=== PATIENT | female | born 1985 | race Caucasian/White ===

== ENCOUNTER 2017-08-12 10:24 | Inpatient (IN) | payer OTHER ==
[~2017-08-12] VITALS: Ht 165.1 cm; Wt 113.7 kg
[2017-08-12 10:50] VITALS: Ht 165.1 cm; Wt 113.7 kg
[2017-08-12 10:51] VITALS: BP 123/67; PULSE 77; RESP 18
[2017-08-12] MEDS ORDERED: PNV11TAB PO (10:53)
[2017-08-12] MEDS ORDERED: CALC600T5 PO (10:53)
--- NOTE | 2017-08-12 11:36 | RADRPT ---
PROCEDURE: US biophysical profile. CLINICAL INDICATION: Leaking amniotic fluid for 3 days. TECHNIQUE: Multiple sonographic images of the uterus were obtained. The images were revi ewed on a PACS workstation. COMPARISON: No prior studies are available for comparison. FINDINGS: There is a single live intrauterine gestation. heart rate is 143 beats per minute. The position is cephalic. The placenta is posterior grade III with no abruption or previa. The BECCA is 9.0 cm. (Normal = 5-20 cm.) Breathing Movement: 2 Gross Body Movement: 2 Tone: 2 Qualitative Amniotic Fluid Volume: 2 TOTAL: 8 IMPRESSION: 1. The biophysical score is 8/8. RPTAT: QQ .Sabas Gonzales MD, MD Date Time Electronically viewed and signed by .Sabas Gonzales MD, on 08/12/2017 11:36 .R/
--- NOTE | 2017-08-12 12:05 | RADRPT ---
PROCEDURE: US OB. CLINICAL INDICATION: Leaking fluid TECHNIQUE: Multiple sonographic images of the pelvis were obtained. Transabdominal imaging only w as performed. The images were reviewed on a PACS workstation. COMPARISON: No prior studies are available for comparison. FINDINGS: There is a single live intrauterine gestation. Cardiac activity is present with 150 beats per minut e. position is cephalic. The cervix is closed with a length of 3.8 cm. Measurements were made in order to determine age. The results are as follows: BPD = 8.85 cm HC = 32.81 cm AC = 35.60 cm FL = 7.57 cm. Estimated gestational age of approximately 37 weeks 6 days. The estimated date of delivery is 08/27/2017. The EFW = 3533 g, 76.5 %ile. The placenta is fundal. There is no evidence for an abruption or placenta previa. IMPRESSION: 1. Single live intrauterine gestation of approximately 37 weeks 6 days, by ultrasound criteria. 2. The estimated date of delivery is 08/27/2017. 3. The estimated weight is 3533 g, 76.5 %ile. RPTAT: HH .Alize Fitzgerald MD, MD Date Time Electronically viewed and signed by .Alize Fitzgerald MD, on 08/12/2017 12:05 .G/
[2017-08-12 14:05] LABS: BASOPHILS % 0.2 % (0.0-2.0); EOSINOPHILS % 0.1 % (0.0-7.0); HEMATOCRIT 36.4 % (37.0-47.0); HEMOGLOBIN 12.4 g/dl (12.0-16.0); LYMPHOCYTES # 1.6 10^3/ul (0.8-2.9); LYMPHOCYTES % 18.5 % (15.0-51.0); MEAN CORPUSCULAR HEMOGLOBIN 28.2 pg (29.0-33.0); MEAN CORPUSCULAR HGB CONC 34.1 g/dl (32.0-37.0); MEAN CORPUSCULAR VOLUME 82.9 fl (82.0-101.0); MEAN PLATELET VOLUME 11.6 fl (7.4-10.4); MONOCYTE # 0.7 10^3/ul (0.3-0.9); MONOCYTES % 7.7 % (0.0-11.0); NEUTROPHIL # 6.5 10^3/ul (1.6-7.5); NEUTROPHILS % 73.2 % (39.0-77.0); PLATELET COUNT 157 10^3/UL (140-415); RED BLOOD COUNT 4.39 10^6/ul (4.20-5.40); RED CELL DISTRIBUTION WIDTH 12.4 % (11.5-14.5); WHITE BLOOD COUNT 8.9 10^3/ul (4.8-10.8)
[2017-08-12] MEDS ORDERED: LACTATED RINGER'S 1,000 ML IV SCH (14:41)
--- NOTE | 2017-08-12 14:47 | TRIAGE ---
OB Triage Datetime Report Generated by CPN: 08/12/2017 14:47 Datetime: 08/12/2017 14:37 Stage of : OB Triage Datetime: 08/12/2017 14:23 Stage of : OB Triage Datetime: 08/12/2017 14:03 Labor Evaluation Frequency: 3-7 Monitor Mode: External Duration (sec)2399: 50-70 Quality: Mild Pattern: Normal: <= 5 Contractions in 10 Minutes Resting Tone Xenia: Relaxed Heart Rate FHR Baseline Rate: 135 Monitor Mode: External US Variability: Moderate 6-25 bpm Accelerations: 10X10 Decelerations: None Category: Category I Pain Assessment Pain Scale: 8 Pain Presence: Intermittent Pain Type: Cramping Pain Location: Abdomen Pain Goal: 3 Pain Relief Measures: Comfort Measures Datetime: 08/12/2017 12:59 Labor Evaluation Frequency: 5-10 Monitor Mode: External Duration (sec)2399: 30-70 Quality: Mild Resting Tone Xenia: Relaxed Heart Rate FHR Baseline Rate: 135 Monitor Mode: External US Variability: Moderate 6-25 bpm Accelerations: 10X10 Decelerations: Variable Category: Category II Pain Assessment Pain Scale: 8 Pain Presence: Intermittent Pain Type: Cramping Pain Goal: 3 Pain Relief Measures: Comfort Measures Pain Assessment Comments: pain scale with cramping Datetime: 08/12/2017 12:05 Labor Evaluation Frequency: 0 Monitor Mode: External Resting Tone Xenia: Relaxed Heart Rate FHR Baseline Rate: 145 Monitor Mode: External US Variability: Moderate 6-25 bpm Accelerations: 10X10 Decelerations: None Category: Category I Pain Assessment Pain Scale: 0 Pain Presence: None/Denies Pain Type: N/A Pain Goal: 3 Pain Relief Measures: Comfort Measures Datetime: 08/12/2017 11:26 Stage of : OB Triage Datetime: 08/12/2017 11:04 Stage of : OB Triage Datetime: 08/12/2017 10:54 Stage of : OB Triage Datetime: 08/12/2017 10:40 Stage of : OB Triage Assessment Type: Triage EGA: 38.0 Maternal Assessment Level of Consciousness: Fully Conscious DTR's/Clonus: DTRs 2+; No Clonus Headache: Denies Blurred Vision: No Respiratory Effort: Unlabored; Regular Rhythm; Equal Expansion Breath Sounds, Left: Clear and Equal Breath Sounds, Right: Clear and Equal Nausea/Vomiting: Denies RUQ Epigastric Pain: Denies Facial Edema: None Temperature Route: Axillary Fall Risk Assessment History of Falling: (0) No Secondary Diagnosis: (0) No Ambulatory Aid: (0) Bedrest/Nurse Assist IV Therapy: (0) No Gait: (0) Normal/Bedrest/Immobile Mental Status: (0) Oriented to Own Ability Fall Score: 0 Fall Risk Score Definition: No Risk: No action required Labor Evaluation Frequency: 0 Monitor Mode: External Resting Tone Xenia: Relaxed Heart Rate FHR Baseline Rate: 150 Monitor Mode: External US Variability: Moderate 6-25 bpm Accelerations: 10X10 Decelerations: None Category: Category I Pain Assessment Pain Scale: 8 Pain Presence: Intermittent Pain Type: Cramping; Contraction Pain Location: Abdomen Pain Goal: 3 Pain Relief Measures: Comfort Measures Vaginal Exam Dilatation (cms): 0.0 Effacement (%): 40 Station: -3 Exam By: Cady TREVINO Nitrazine: Negative ROM Test Kit: OBTAINED Datetime: 08/12/2017 10:39 Time of Arrival: 08/12/2017 10:25 Arrived By: Ambulatory Arrived From: Dr. Urias Chief Complaint: SENT FROM DR. URIAS TO R/O SROM, DENIES BLEEDING, UC'S APPROX 3 MIN, INTERMITT ENT OVER LAST FEW DAYS Movement: Present Contractions: Irregular Rupture of Membranes: Unsure Vaginal Bleeding: None Vaginal Discharge: Denies Recent Sexual Intercouse: Denies Abdominal Trauma: Not Applicable Patient Complaints: Contractions; Cramping Time Provider Notified: 08/12/2017 11:26 Provider Notified: dane Initial Plan: MONITOR, VE, NITRAZINE, ROM PLUS
[2017-08-12] MEDS ORDERED: MISOPROSTOL 200 MCG TAB PR PRN (15:00)
[2017-08-12] MEDS ORDERED: LIDOCAINE 1% (MPF) 30 ML INJ INJ PRN (15:00)
[2017-08-12] MEDS ORDERED: CARBOPROST 250 MCG INJ IM PRN (15:00)
[2017-08-12] MEDS ORDERED: METHYLERGONOVINE 0.2 MG INJ IM PRN (15:00)
[2017-08-12] MEDS ORDERED: BUTORPHANOL 2 MG INJ IV PRN ×2 (15:00)
[2017-08-12] MEDS ORDERED: OXYTOCIN 30 UNITS/LR 500 ML IV PRN (15:00)
[2017-08-12 16:17] LABS: BASOPHILS % 0.2 % (0.0-2.0); EOSINOPHILS % 0.1 % (0.0-7.0); HEMATOCRIT 37.9 % (37.0-47.0); HEMOGLOBIN 12.9 g/dl (12.0-16.0); LYMPHOCYTES # 1.7 10^3/ul (0.8-2.9); LYMPHOCYTES % 17.9 % (15.0-51.0); MEAN CORPUSCULAR HEMOGLOBIN 28.1 pg (29.0-33.0); MEAN CORPUSCULAR VOLUME 82.6 fl (82.0-101.0); MEAN PLATELET VOLUME 11.9 fl (7.4-10.4); MONOCYTE # 0.7 10^3/ul (0.3-0.9); MONOCYTES % 7.2 % (0.0-11.0); NEUTROPHIL # 6.9 10^3/ul (1.6-7.5); NEUTROPHILS % 74.4 % (39.0-77.0); PLATELET COUNT 168 10^3/UL (140-415); RED BLOOD COUNT 4.59 10^6/ul (4.20-5.40); RED CELL DISTRIBUTION WIDTH 12.5 % (11.5-14.5); WHITE BLOOD COUNT 9.2 10^3/ul (4.8-10.8)
[2017-08-12] MEDS: OXYTOCIN 30 UNITS/LR 500 ML IV SCH ×2 (16:25→23:33)
[2017-08-12 16:32] LABS: INR 0.92; PROTIME 12.4 Sec (11.9-14.9)
[2017-08-12 16:33] LABS: PARTIAL THROMBOPLASTIN TIME 28.1 Sec (25.0-35.0)
[2017-08-12] MEDS ORDERED: CEFAZOLIN 2 GM/50 ML (PMX) 50 ML IV SCH (19:30)
--- NOTE | 2017-08-12 19:42 | HP ---
Date/Time of Note Date/Time of Note DATE: 08/12/17 TIME: 19:33 OB - History Hx of Present Free Text/Dictation August 12, 2017. Preoperative history and physical. This patient is a 31 years old , 1 para 1 2, with estimated date of confinement of August 26, 2017, which make her 8 weeks, She was admitted in early labor ,made the progress to 1 cm however the heart tracing was not reassuring . Due to nonreassuring heart tracing a decision was made to go ahead with the section. The condition of the heart rate were discussed with the patient she gladly accepted to undergo this procedure. Estimated Due Date: Aug 06, 2017 : 4 Para: 1 Spontaneous : 2 Care: Good Care Abnormal Ultrasound Findings: .She had a spontaneous vaginal delivery on 2008 also had appendectomy on 2005 Obstetrical Complications: Other Other Concerns: Nonreassuring heart rate tracing during labor Past Family/Social History * Past Medical, Surgical, Family and Obstetric Histories reviewed from chart. OB Admission Exam Vital Signs Vital Signs Vital Signs Date Time Temp Pulse Resp B/P Pulse Ox O2 Delivery O2 Flow Rate FiO2 08/12/17 10:51 97.6 77 18 123/67 Physical Exam Heart: Rhythm Normal Lungs: Clear Abdomen: WNL Extremities: Normal Reflexes: Normal Cervical Dilatation: Fingertip Effacement: 50% Station: 0 Membranes: Intact Heart Rate: 140's Accelerations: No Accelerations Decelerations: Variable Decelerations Varibility: Minimum Contractions on Admission: 6-10 Minutes Apart Date/Time Contractions Began: 8 HOURS AGO Frequency of Contractions: 3 TO 4 MINUTES Intensity: Moderate Last 72 hours Lab Results CBC & BMP 08/12/17 13:54 08/12/17 16:03 OB Assessment/Plan Reason for admission: active labor Other Assessment: Per Dr Lieberman heart tracing is none reassuring and patient is also requesting a C Section Plan: Section Other plan: primary C Section ZUHAIR TAN MD Aug 12, 2017 19:42
[2017-08-12] MEDS ORDERED: morphine SULFATE/PF (10 MG/10 ML) INJ ONE (19:56)
[2017-08-12] MEDS ORDERED: PHENYLephrine (100 MCG/ML) 5ML SYG ONE (20:21)
[2017-08-12] MEDS ORDERED: ONDANSETRON 4 MG INJ ONE (20:58)
[2017-08-12] MEDS ORDERED: KETOROLAC 30 MG INJ IV PRN (21:30)
[2017-08-12] MEDS ORDERED: FENTAnyl 50 MCG/ML VIAL IV PRN ×2 (21:30)
[2017-08-12] MEDS ORDERED: ONDANSETRON 4 MG INJ IV PRN ×2 (21:30)
[2017-08-12] MEDS ORDERED: HYDROmorphONE 0.5 MG/0.5 ML SYG IV PRN ×2 (21:30)
[2017-08-12] MEDS ORDERED: METOCLOPRAMIDE 10 MG INJ IV PRN (21:30)
[2017-08-12] MEDS ORDERED: HYDROmorphONE (0.2 MG/ML) 10ML SYG IV PRN ×2 (21:30)
[2017-08-12] MEDS ORDERED: NALOXONE (0.4 MG/ML) INJ IV PRN (21:30)
[2017-08-12] MEDS ORDERED: DIPHENHYDRAMINE 50 MG INJ IV PRN ×2 (21:30)
--- NOTE | 2017-08-12 21:34 | OPR ---
Operative Report Planned Procedure Free Text/Dictation After spinal anesthesia had been dosed and tested, the patient was placed supine on the Operating Room table and prepped and draped in the usual sterile fashion. A transverse incision was made at the lower abdomen and carried down to the level of the fascia. The fascia was incised transversely and then the rectus muscle was dissected off the fascia and split bluntly in the midline. The peritoneum was then entered bluntly. The bladder flap was dissected free . A low segment transverse incision was made with a knife on the uterus until the amniotic fluid was encountered. The incision was widened with bandage scissors. A hand was inserted elevating the vertex and then the body was delivered using the usual maneuvers . The nares and oropharynx were bulb suctioned, and the remainder of the was delivered out of the maternal abdomen. There was one loose cord around the neck which was lysed . After 30 second waiting the cord was doubly clamped and cut, and the handed off to the awaiting resuscitation team . also coed blood was collected for freezing as requested by the parents of the new born. The placenta was then manually extracted and the interior uterus was cleaned with a dry lap sponge. The uterus was exteriorized, and the incision of the uterus closed with a running interlocking stitch of chromic suture in two layers. The uterus was replaced in the maternal abdomen. The abdomen was cleared of clots. The peritoneum closed with 2 o chromic catgut.The fascia was closed with a running suture of #1 Vicryl suture meeting in the midline. The subcutaneous tissue was made hemostatic with Bovie cautery, and the skin approximated using subcutaneous plastic clips. The patient tolerated the procedure well. All sponge and instrument counts were correct. She was taken to the recovery room in stable condition. The estimated blood loss was 600 CC. The new born was male with score of 9 in 1 minute and 9 in 5 minutes. The wait of the new born was 7 lps and 4 ounces. At the end of procedure the patient was transferred to the recovery room in an stable condition. Procedure date Aug 12, 2017 Procedure(s) primary C Section Performed by see signature line Shellac Polisher none Pre-procedure diagnosis none reassuring heart tracing. Anesthesia Type: spinal Post-Procedure Post-procedure diagnosis the same Findings Live Baby [], Apgars [] and [], weight [], position [], [] presentation []cord. Estimated Blood Loss: 500 - 600 mls Specimen(s) none Grafts/Implant(s) none Complication(s) none Procedure Description as above ZUHAIR TAN MD Aug 12, 2017 21:30
[2017-08-12] MEDS ORDERED: OXYTOCIN 30 UNITS/LR 500 ML IV SCH (23:39)
[2017-08-13] MEDS ORDERED: METHYLERGONOVINE 0.2 MG INJ IM PRN
[2017-08-13] MEDS ORDERED: CARBOPROST 250 MCG INJ IM PRN
[2017-08-13] MEDS ORDERED: OXYTOCIN 30 UNITS/LR 500 ML IV PRN
[2017-08-13] MEDS ORDERED: MISOPROSTOL 200 MCG TAB PR PRN
[2017-08-13] MEDS ORDERED: LANOLIN 7 GM TUBE TOP PRN
[2017-08-13 00:30] VITALS: BP 131/63; PULSE 77; RESP 18
[2017-08-13] MEDS: KETOROLAC 30 MG INJ IV PRN ×2 (02:38→20:22)
[2017-08-13 04:20] VITALS: BP 103/53; PULSE 77; RESP 18
[2017-08-13] MEDS ORDERED: CEFAZOLIN 2 GM/50 ML (PMX) 50 ML IV ONE (05:00)
[2017-08-13] MEDS ORDERED: IBUPROFEN 600 MG TAB PO SCH (06:00)
[2017-08-13 07:30] VITALS: BP 118/68; PULSE 85; RESP 20
[2017-08-13] MEDS: SENNA/DOCUSATE NA (8.6MG/50MG) TAB PO SCH ×2 (10:38→20:22)
[2017-08-13] MEDS: LACTATED RINGER'S 1,000 ML IV SCH ×4 (10:39→23:39)
[2017-08-13 11:32] LABS: BASOPHILS % 0.2 % (0.0-2.0); HEMATOCRIT 33.7 % (37.0-47.0); HEMOGLOBIN 11.3 g/dl (12.0-16.0); LYMPHOCYTES # 1.3 10^3/ul (0.8-2.9); LYMPHOCYTES % 14.7 % (15.0-51.0); MEAN CORPUSCULAR HGB CONC 33.5 g/dl (32.0-37.0); MEAN CORPUSCULAR VOLUME 83.4 fl (82.0-101.0); MONOCYTE # 0.7 10^3/ul (0.3-0.9); MONOCYTES % 8.6 % (0.0-11.0); NEUTROPHIL # 6.5 10^3/ul (1.6-7.5); NEUTROPHILS % 76.2 % (39.0-77.0); PLATELET COUNT 142 10^3/UL (140-415); RED BLOOD COUNT 4.04 10^6/ul (4.20-5.40); RED CELL DISTRIBUTION WIDTH 12.5 % (11.5-14.5); WHITE BLOOD COUNT 8.6 10^3/ul (4.8-10.8)
[2017-08-13 12:00] VITALS: BP 116/59; PULSE 84; RESP 18
[2017-08-13 20:00] VITALS: BP 111/59; PULSE 84; RESP 18
[2017-08-13] MEDS ORDERED: OXYCODONE/ACETAMINOPHEN (5/325) TAB PO PRN (21:30)
[2017-08-13] MEDS: IBUPROFEN 600 MG TAB PO SCH (23:07)
[2017-08-14 04:00] VITALS: BP 98/46; PULSE 70; RESP 18
[2017-08-14] MEDS: IBUPROFEN 600 MG TAB PO SCH ×4 (06:26→23:09)
[2017-08-14] MEDS: LACTATED RINGER'S 1,000 ML IV SCH (07:39)
[2017-08-14 08:00] VITALS: BP 105/50; PULSE 76; RESP 20
[2017-08-14] MEDS ORDERED: INFLUENZA VIRUS VACCINE 0.5 ML SYG IM* ONE (09:00)
[2017-08-14] MEDS: SENNA/DOCUSATE NA (8.6MG/50MG) TAB PO SCH ×2 (10:27→22:00)
[2017-08-14] MEDS ORDERED: BISACODYL 10 MG SUPP PR ONE (10:30)
[2017-08-14] MEDS ORDERED: MAGNESIUM HYDROXIDE 30ML CUP PO ONE (10:30)
[2017-08-14 15:53] VITALS: BP 126/75; RESP 16
[2017-08-14 20:00] VITALS: BP 115/61; PULSE 83; RESP 18
[2017-08-15 04:00] VITALS: BP 106/52; PULSE 70; RESP 19
[2017-08-15] MEDS: IBUPROFEN 600 MG TAB PO SCH ×2 (05:50→12:17)
[2017-08-15 08:04] LABS: BASOPHILS % 0.3 % (0.0-2.0); EOSINOPHILS # 0.1 10^3/ul (0.0-0.5); EOSINOPHILS % 1.7 % (0.0-7.0); LYMPHOCYTES # 1.4 10^3/ul (0.8-2.9); LYMPHOCYTES % 17.9 % (15.0-51.0); MEAN CORPUSCULAR HEMOGLOBIN 28.3 pg (29.0-33.0); MEAN CORPUSCULAR HGB CONC 33.3 g/dl (32.0-37.0); MEAN CORPUSCULAR VOLUME 84.9 fl (82.0-101.0); MEAN PLATELET VOLUME 11.5 fl (7.4-10.4); MONOCYTE # 0.7 10^3/ul (0.3-0.9); MONOCYTES % 8.9 % (0.0-11.0); NEUTROPHIL # 5.3 10^3/ul (1.6-7.5); NEUTROPHILS % 70.8 % (39.0-77.0); PLATELET COUNT 181 10^3/UL (140-415); RED BLOOD COUNT 4.24 10^6/ul (4.20-5.40); RED CELL DISTRIBUTION WIDTH 12.9 % (11.5-14.5); WHITE BLOOD COUNT 7.5 10^3/ul (4.8-10.8)
[2017-08-15 08:15] VITALS: BP 99/58; PULSE 71; RESP 20
[2017-08-15] MEDS: SENNA/DOCUSATE NA (8.6MG/50MG) TAB PO SCH (08:23)
[2017-08-15] MEDS ORDERED: MEASLES,MUMPS,RUBELLA VACCINE INJ SC* ONE (09:00)
[2017-08-15] MEDS ORDERED: DIPHTH/TET/ACEL PERTUSS (ADULT) 0.5 ML VIAL IM* ONE (09:00)
--- NOTE | 2017-08-16 07:21 | PREOPHP ---
DATE OF ADMISSION: 08/12/2017 HISTORY OF PRESENT ILLNESS: This is a 32-year-old lady, 2, para 1. She is about 38 weeks' , admitted to labor and delivery area in labor. She had care in my [place] office and the care was uneventful. PAST MEDICAL HISTORY: No history of diabetes, TB, asthma. SOCIAL HISTORY: The patient does not smoke. She does not drink. She does not take any drugs except her iron and vitamins. JUNIOR BOOKKEEPER HISTORY: She had menarche at the age of 12, every 28 days interval, 3-4 days duration, and moderate in amount. FAMILY HISTORY: Noncontributory. REVIEW OF SYSTEMS: CARDIOVASCULAR: No chest pain. PULMONARY: No cough. GASTROINTESTINAL: No diarrhea, no vomiting. GENITOURINARY: No dysuria. PHYSICAL EXAMINATION: GENERAL: Reveals a conscious, coherent lady, in no acute distress. VITAL SIGNS: Blood pressure 120/80. Pulse 80 per minute. Respirations 16 per minute. BREASTS: Within normal limits. HEART: Within normal limits. LUNGS: Within normal limits. ABDOMEN: Soft. No tenderness. Fundic height 37 cm. heart tones 140 per minute. PELVIC: Exam revealed the cervix to be closed, patient floating in cephalic presentation with the bag of water intact. EXTREMITIES: No pedal edema. ADMITTING DIAGNOSIS: 38-week intrauterine in labor. The plans of delivery were explained to the patient, asked to go for vaginal delivery. The risks, benefits and alternative to vaginal delivery and were explained to the patient. The risks of were explained. She wanted to go for vaginal delivery. She was given Cytotec p.o. as her cervix was closed. After the Cytotec was given, she started to have contractions, late decelerations and variable decelerations were noted. the case once the Dr. Ricketts was the laborist healthcare risk control consultant and the case was endorsed to him. He evaluated the patient and the tracing as daniall and she decided to do the for 38 weeks' intrauterine in labor, and category 3 tracing. Dictated By: Martha Lieberman MD /florence/kamini /Document#: [id number] ; [facility]
== END 2017-08-15 15:47 | disposition home or self-care (01) | DRG 766 ==
LOC: L-D 10:24 → OBT 10:24 → L-D 14:25 → OBT 14:42 → L-D 19:35 → PP1 08-13 00:30
PROVIDERS: ADMIT Obstetrics & Gynecology; ATTEND Obstetrics & Gynecology
PROC: 10D00Z1 Extraction of Products of Conception, Low, Open Approach (ICD-10-PCS; principal; 2017-08-12 19:45)
DX: O76 Abnormality in fetal heart rate and rhythm complicating labor and delivery (principal); Z37.0 Single live birth; Z3A.38 38 weeks gestation of pregnancy
CPT/HCPCS: 76815; 76818; 84112; 85025; 85610; 85730; 86592; 86900; 86901; 87340; 90686; 90715; 94760; 99464; G0463; J0690; J1885; J2274; J2370; J2405; J2590; J7120